=== PATIENT | female | born 1955 | race African-American/Black ===

== ENCOUNTER 2017-08-11 05:15 | Inpatient (IN) | payer OTHER ==
[~2017-08-11] VITALS: Ht 162.6 cm; Wt 94.3 kg
--- NOTE | ~2017-08-11 | EKG ---
[address] [address] ELECTROCARDIOGRAM REPORT Name: LIZA MIN Room #: PRE IN [facility]#: [id number] Admission: Attend Phys: Maurilio Tapia MD Discharge: Date of : 53 Report #: [id number] THIS REPORT FOR: //name// [facility] Test Date: 2017-08-06 Test Time: 14:02:31 Pat Name: LIZA MIN Department: Room: Gender: F Pattern Technician: berny wheat : 1955 Requested By: Maurilio Tapia Order Number: [id number] MD: Danial Garcia Measurements Intervals [place] Rate: 62 P: 68 MT: 163 QRS: 69 QRSD: 94 T: -3 QT: 392 QTc: 398 Interpretive Statements Sinus rhythm Borderline T abnormalities, inferior leads Compared to ECG 07/10/2016 15:55:48 T-wave abnormality now present Electronically Signed On 08-06-2017 15:45:38 CDT by Danial Garcia [email or web address] <ELECTRONICALLY SIGNED> By: Danial Garcia MD 08/06/17 1545 140 140 Danial Garcia MD /VINCENT
--- NOTE | ~2017-08-11 | O ---
[facility] [place] [address] OPERATIVE REPORT Name: LIZA PERKINS Room #: 150-6 ADM IN M.R.#: [id number] Admission: 08/11/17 Attend Phys: Maurilio Tapia MD Discharge: Date of : 53 Report #: [id number] THIS REPORT FOR: //name// CC: Loco Tapia DATE OF SERVICE: 08/11/2017 PREOPERATIVE DIAGNOSIS: Severe left knee osteoarthritis. POSTOPERATIVE DIAGNOSIS: Severe left knee osteoarthritis. PROCEDURE: Left total knee arthroplasty. SURGEON: Maurilio Tapia MD. CHIEF TECHNOLOGIST: Barbara Sarmiento PA-C. INDICATIONS FOR PROCEDURE: Throughout the procedure, extensive retraction and manipulation of the knee was required. This was afforded to me by my neurosurgical physician assistant. ANESTHESIA: LMA with an adductor canal block. IMPLANTS: [employer] size 6 Legion posterior stabilized cobalt chrome femur, size 4 tibia, size 9 polyethylene and a size 32 patella. TOURNIQUET TIME: 89 minutes. ESTIMATED BLOOD LOSS: 50 mL. COMPLICATIONS: None. SPECIMENS: None. CONDITION UPON LEAVING THE OPERATING ROOM: Stable. INDICATION FOR PROCEDURE: The patient is a 62-year-old female with severe left knee osteoarthritis. She had failed conservative treatment for this and after discussion with her, she elected for left total knee arthroplasty. DESCRIPTION OF PROCEDURE: Risks, benefits, alternatives, complications were discussed in detail with the patient including but not limited to risk of anesthesia, risk of damage to nerves, arteries, blood vessels, risk for infection, bleeding, risk for continued knee pain and need for reoperation. Informed consent was obtained from the patient. Left knee was appropriately marked in the preoperative holding area. IV clindamycin was given for [facility] [address] [place] [address] OPERATIVE REPORT Name: LIZA PERKINS Room #: 150-6 ADM IN M.R.#: [id number] Admission: 08/11/17 Attend Phys: Maurilio Tapia MD Discharge: Date of : 53 Report #: [id number] preoperative antibiotics. Adductor canal block was placed by anesthesia. She was brought to the operating room and placed in the supine position on operating room table. LMA anesthesia was induced without complication. Tourniquet was placed on the left thigh. Left lower extremity was prepped and draped in normal sterile fashion. Timeout was performed properly identifying the patient and procedure as well as the instrumentation. All in the operating room were in agreement. Left lower extremity was exsanguinated, tourniquet was inflated. Tourniquet time was 89 minutes. Standard midline approach to the knee was made with 10 blade through the skin. Dissection was taken down sharply to the fascia and deep flaps were developed medially and laterally. Fresh 10 blade was used to make a medial parapatellar arthrotomy and the knee was inspected. There was extensive tricompartmental osteoarthritic change with several osteocartilaginous loose bodies. The anterior horns of the meniscus were removed sharply and osteophytes were removed from the femur. The knee was flexed and ACL and PCL were removed sharply. Drill was used to gain access to the canal of the femur and distal femoral cutting block was pinned in place. Distal femoral cut was made. After this, attempt to size the femur was performed; however, there was a large posterior osteophyte and there was no space to do this, so we then went ahead and resected the tibia. Drill was used to gain access to the canal of the tibia and resection was based off the lateral plateau. This freed up enough space in order to size the femur and this was sized, found to be of size 6. Size 6, 4-in-1 cutting block was placed. Anterior, posterior and chamfer cuts were made. After this, large posterior osteophytes were removed from the posterior femur and flexion and extension gaps were checked. She was found to be tight in extension. Two additional millimeters of distal femur were taken and chamfer cuts were redone. After this flexion and extension gaps were well balanced and the tibia was sized, found to be a size 4. Size 4 tibial trial was placed and size 6 femoral trial was placed and the box cut was made. Post was placed and the size 9 polyethylene trial was placed. Knee was taken through range of motion, found to be stable, found to have good balance medially and laterally. 9 mm was taken off the posterior surface of the patella and a size 32 patellar trial. Knee was taken through range of motion, found to be stable, found to have good patellar tracking. Trial components were removed. Bony ends were thoroughly irrigated with normal saline. A final size 4 tibia, size 6 cobalt chrome, posterior stabilized Legion femur and a size 32 patella were cemented in place using standard cementation techniques. After the cement cured, tourniquet was deflated. Hemostasis was obtained with Bovie cautery. A periarticular injection consisting of morphine, ropivacaine, epinephrine and Toradol was placed around the knee joint. A final size 9 polyethylene was placed. A gram of vancomycin was placed deep in the knee joint. Fascia was closed with 0 Vicryl, skin was closed with 2-0 Vicryl and 3-0 Monocryl and a [facility] [address] [place] [address] OPERATIVE REPORT Name: LIZA PERKINS Room #: 150-6 [facility] IN .R.#: [id number] Admission: 08/11/17 Attend Phys: Maurilio Tapia MD Discharge: Date of : 53 Report #: [id number] FARIBA dressing was applied. The patient tolerated this procedure well and went to the recovery room under the care of anesthesia postoperatively. By: [id number] Maurilio Tapia MD /nt
[~2017-08-11 05:15] MED LIST: CALCIUM 600 +1 EAC1 PO; PRENATAL PO; VITAMIN B-12500 MCG PO
[2017-08-11 09:00] VITALS: BP 157/77
[2017-08-11 17:30] VITALS: BP 139/69
[2017-08-11 18:00] VITALS: BP 139/82
[2017-08-11 18:30] VITALS: BP 143/63
[2017-08-11 19:00] VITALS: BP 138/60
[2017-08-11 20:00] VITALS: BP 147/55
[2017-08-12] VITALS: BP 113/48; BP 144/58
[2017-08-12 04:00] VITALS: BP 117/49
[2017-08-12 06:00] LABS: HEMOGLOBIN 8.3 gm/dL (12.0-15.0); MCH 24.4 pg (26.0-34.0); MCHC 31.8 g/dL (28.0-37.0); MCV 76.7 fL (80.0-100.0); RBC 3.39 mil/uL (4.20-5.00); RDW 15.5 % (10.5-14.5); WBC 8.5 thou/uL (4.0-11.0)
[2017-08-12 08:00] VITALS: BP 117/43
[2017-08-12 13:12] VITALS: BP 117/43
[2017-08-12 13:22] VITALS: BP 117/43
[2017-08-12 13:32] VITALS: BP 117/43
== END 2017-08-12 17:13 | disposition home health service (06) | DRG 470 ==
LOC: 4N 05:15 → TBA 05:15 → PRE 05:29 → 4N 16:26 → ENTRNSPT 08-12 17:06 → 4N 08-12 17:13
PROVIDERS: Orthopaedic Surgery
PROC: 0SRD069 Replacement of Left Knee Joint with Oxidized Zirconium on Polyethylene Synthetic Substitute, Cemented, Open Approach (ICD-10-PCS; principal; 2017-08-11)
DX: M17.12 Unilateral primary osteoarthritis, left knee (principal); E11.9 Type 2 diabetes mellitus without complications; I10 Essential (primary) hypertension; Z98.84 Bariatric surgery status; Z88.0 Allergy status to penicillin; Z91.018 Allergy to other foods; Z87.891 Personal history of nicotine dependence
CPT/HCPCS: 10790; 50010; 50101; 50415; 50954; 51130; 51225; 51771; 53000; 53078; 53364; 54118; 56527; 56528; 57095; 62110; 62900; 64042; 64043; 70005